=== PATIENT | female | born 1950 | race Caucasian/White ===

== ENCOUNTER 2019-05-05 10:15 | Outpatient (RCR) | payer MEDICARE, BC | END 2019-05-06 09:37 | disposition home or self-care (01) | LOC: MKS.ESL.PT 10:15 | DX: M25.511 Pain in right shoulder (principal); R53.1 Weakness ==

== ENCOUNTER 2020-04-27 10:27 | Day surgery (SDC) | payer MEDICARE, BC ==
[2020-04-27] VITALS (8 sets, daily range): BP systolic 108–123; BP diastolic 62–70; PULSE 54–69; TEMP 97–97.7
[~2020-04-27] VITALS: Ht 170.2 cm; Wt 63.2 kg
[2020-04-27] MEDS ORDERED: TIROSINT25 MC1 PO (11:44)
[2020-04-27] MEDS ORDERED: LOPRESSOR 550 MG/TAB PO (11:45)
[2020-04-27] MEDS ORDERED: EFFE25TA PO (11:46)
[2020-04-27] MEDS ORDERED: ASPIRIN 81M81 MG/TA2 PO (11:48)
[2020-04-27] MEDS ORDERED: LIPITOR 40MG TA40 MG PO (11:48)
[2020-04-27] MEDS ORDERED: CALCIUM 600MG+D1 TAB PO (11:49)
[2020-04-27] MEDS ORDERED: LOPRESSOR 225 MG/TAB PO (11:49)
[2020-04-27] MEDS ORDERED: PROBIOTIC FORMU1 CAP PO (11:50)
[2020-04-27] MEDS ORDERED: ONE-A-DAY ESSE1 EACH PO (11:50)
[2020-04-27] MEDS ORDERED: THE MEDICINE S200 M2 PO (11:51)
[2020-04-27] MEDS ORDERED: B-121000 MCG PO (11:51)
[2020-04-27] MEDS ORDERED: STOOL SOFTENER100 M2 PO (11:52)
[2020-04-27] MEDS ORDERED: PULMICORT0.5 MG/2 M IH (11:57)
[2020-04-27] MEDS ORDERED: [UNRECOGNIZED DRUG - OTHER] IH (11:58)
[2020-04-27] MEDS ORDERED: YUPELRI175 MCG/3 IH (11:59)
[2020-04-27] MEDS ORDERED: PRILOSEC 20MG20 MG PO (12:21)
[2020-04-27] MEDS ORDERED: MOTRIN 600600 MG/TAB PO (14:28)
[2020-04-27] MEDS ORDERED: PERCOCET 325 MG1 TA2 PO (14:29)
== END 2020-04-27 17:17 | disposition home or self-care (01) ==
LOC: SDCO 10:27
DX: K40.90 Unilateral inguinal hernia, without obstruction or gangrene, not specified as recurrent (principal); Z79.82 Long term (current) use of aspirin; I10 Essential (primary) hypertension; E78.00 Pure hypercholesterolemia, unspecified; Z86.010 Personal history of colon polyps; J44.9 Chronic obstructive pulmonary disease, unspecified; K21.9 Gastro-esophageal reflux disease without esophagitis; I25.10 Atherosclerotic heart disease of native coronary artery without angina pectoris; Z90.710 Acquired absence of both cervix and uterus; Z85.3 Personal history of malignant neoplasm of breast; Z82.3 Family history of stroke; F17.210 Nicotine dependence, cigarettes, uncomplicated; Z88.1 Allergy status to other antibiotic agents; Z88.8 Allergy status to other drugs, medicaments and biological substances; E78.5 Hyperlipidemia, unspecified; Z95.5 Presence of coronary angioplasty implant and graft; G47.33 Obstructive sleep apnea (adult) (pediatric); F32.9 Major depressive disorder, single episode, unspecified; Z20.828 Contact with and (suspected) exposure to other viral communicable diseases
CPT/HCPCS: C1781; J2250; J2405; J2704; J3010; J7120

== ENCOUNTER → 2020-07-17 | Outpatient (CLI) | payer MEDICARE, BC ==
[~2020-07-17] MED LIST: ASPIRIN 81M81 MG/TA2 PO; B-121000 MCG PO; CALCIUM 600MG+D1 TAB PO; EFFE25TA PO; LIPITOR 40MG TA40 MG PO; LOPRESSOR 225 MG/TAB PO; LOPRESSOR 550 MG/TAB PO; MOTRIN 600600 MG/TAB PO; ONE-A-DAY ESSE1 EACH PO; PERCOCET 325 MG1 TA2 PO; PRILOSEC 20MG20 MG PO; PROBIOTIC FORMU1 CAP PO; PULMICORT0.5 MG/2 M IH; STOOL SOFTENER100 M2 PO; THE MEDICINE S200 M2 PO; TIROSINT25 MC1 PO; YUPELRI175 MCG/3 IH; [UNRECOGNIZED DRUG - OTHER] IH
== END ==
LOC: MC.RAD 08:20
DX: Z12.31 Encounter for screening mammogram for malignant neoplasm of breast (principal)

== ENCOUNTER → 2021-09-24 | Outpatient (CLI) | payer MEDICARE, BC | LOC: COL.RAD 08-01 13:30 | DX: Z12.2 Encounter for screening for malignant neoplasm of respiratory organs (principal); F17.210 Nicotine dependence, cigarettes, uncomplicated ==

== ENCOUNTER → 2022-11-07 | Outpatient (CLI) | payer MEDICARE, BC | LOC: MC.RAD 10:43 | DX: Z12.31 Encounter for screening mammogram for malignant neoplasm of breast (principal); N64.89 Other specified disorders of breast ==

== ENCOUNTER → 2022-11-14 | Outpatient (CLI) | payer MEDICARE, BC | LOC: MC.RAD 12:47 | DX: N64.89 Other specified disorders of breast (principal) ==

== ENCOUNTER → 2022-11-25 | Outpatient (CLI) | payer MEDICARE, BC | LOC: COL.RAD 07:31 | DX: Z12.2 Encounter for screening for malignant neoplasm of respiratory organs (principal); J98.4 Other disorders of lung; R91.1 Solitary pulmonary nodule; F17.210 Nicotine dependence, cigarettes, uncomplicated ==

== ENCOUNTER 2023-09-01 15:26 | Inpatient (IN) | payer MEDICARE, BC ==
[~2023-09-01] VITALS: Ht 167.6 cm; Wt 53.7 kg
[2023-09-01] MEDS ORDERED: Albuterol/Ipratropium 3 MG-0.5 MG/3 ML Neb Soln IH ONE ×2 (15:30→16:15)
[2023-09-01] MEDS ORDERED: methylPREDNISolone Sod Succ 125 MG/2 ML VIAL IV ONE (15:30)
[2023-09-01 15:41] LABS: BASO # 0.1 K/mm3 (0.0-0.2); BASO % 0.9 % (0.0-2.0); EOS # 0.4 K/mm3 (0.0-0.7); EOS % 5.8 % (0.0-4.0); GRAN # 3.5 K/mm3 (1.4-6.5); GRAN % 52.4 % (42.2-75.2); HEMATOCRIT 47.8 % (37.0-47.0); HEMOGLOBIN 16.4 g/dl (12.5-16.0); LYMPH # 2.1 K/mm3 (1.2-3.4); LYMPH % 31.4 % (20.0-51.0); MEAN CELL VOLUME 98 fl (80.0-100.0); MEAN CORPUSCULAR HEMOGLOBIN 34 pg (27-31); MEAN CORPUSCULAR HGB CONC 34 g/dl (33.0-37.0); MEAN PLATELET VOLUME 10.1 fl (7.4-10.4); MONO # 0.6 K/mm3 (0.1-0.6); MONO % 9.3 % (1.7-9.3); PLATELET COUNT 202 K/mm3 (130-400); REDCELL DISTRIBUTION WIDTH-CV 14.8 % (11.5-14.5)
[2023-09-01] MEDS ORDERED: Albuterol 90 MCG/PUFF 8 GM MDI IH ONE (16:00)
[2023-09-01 16:01] LABS: ALANINE AMINOTRANSFERASE 23 U/L (0-55); ALBUMIN 3.7 gm/dL (3.4-4.8); ALKALINE PHOSPHATASE 69 U/L (40-150); ANION GAP 10 mmol/L (7-16); AST,SGOT 20 U/L (5-34); BILIRUBIN,TOTAL 0.4 mg/dL (0.2-1.2); BLOOD UREA NITROGEN 14 mg/dL (10-20); CALCIUM 9.3 mg/dL (8.4-10.2); CARBON DIOXIDE 23 mmol/L (23-31); CHLORIDE 110 mmol/L (98-107); CREATININE, serum 0.92 mg/dL (0.57-1.11); GLUCOSE 95 mg/dL (70-99); SODIUM 143 mmol/L (136-145); TOTAL PROTEIN 6.5 gm/dL (6.2-8.1)
[2023-09-01 16:06] LABS: TROPONIN-I < 0.010 ng/mL (0.00-0.033)
[2023-09-01] MEDS ORDERED: Azithromycin 250 MG TAB PO ONE (18:00)
[2023-09-01] MEDS ORDERED: cefTRIAXone 1 G in Water For Injection,Sterile 10 ML IV ONE (18:00)
[2023-09-01] MEDS ORDERED: Albuterol/Ipratropium 3 MG-0.5 MG/3 ML Neb Soln IH PRN (18:45)
[2023-09-01] MEDS ORDERED: dexAMETHasone 10 MG/ML VIAL IV SCH (18:45)
[2023-09-01] MEDS ORDERED: Formoterol Neb Soln 20 MCG/2 ML UD IH SCH (19:00)
[2023-09-01] MEDS ORDERED: Budesonide Neb Susp 0.5 MG/2 ML AMP IH SCH (19:00)
[2023-09-01] MEDS ORDERED: COZAAR 25MG25 MG/TAB PO (19:07)
[2023-09-01] MEDS ORDERED: COREG12.5 MG PO (19:07)
[2023-09-01] MEDS ORDERED: YUPELRI175 MCG/3 IH (19:35)
[2023-09-01] MEDS ORDERED: VENTOLIN0.09 MG IH (19:35)
[2023-09-01] MEDS ORDERED: EFFEXOR XR37.5 MG/CA PO (19:36)
[2023-09-01] MEDS ORDERED: BROVANA15 MCG/2 M IH (19:40)
[2023-09-01] MEDS ORDERED: LIPITOR 80MG80 MG PO (19:40)
--- NOTE | 2023-09-01 20:24 | NUR ---
FEMALE PATIENT ARRIVED TO ROOM #306 VIA WHEELCHAIR. REPORT RECIEVED FROM MAGGIE SAMPSON AT 195. PATIENT ASSISTED TO BED WITH STAND BY ASSIST. GAIT STEADY. PATIENT ON 4 LITERS OF OXYGEN VIA NC. TELEMETRY INTACT. INT TO RIGHT FOREARM INTACT. PATIENT VERBALIZED UNDERSTANDING OF BED CONTROLS AND CALL LIGHT. ALL NEEDS MET. INITAL INTERVIEW AND ASSESSMENT COMPLETED AT THIS TIME. BED IN LOW POSITION WITH WHEELS LOCKED WITH RAILS UP X3 AND CALL LIGHT WITHIN REACH.
[2023-09-01 20:30] VITALS: BP 138/78; PULSE 71; TEMP 97.5
--- NOTE | 2023-09-01 20:45 | NUR ---
PATIENT REFUSED SCDS AT THIS TIME.
[2023-09-01 21:00] VITALS: BP_SYST 138
[2023-09-01] MEDS ORDERED: Carvedilol 6.25 MG TAB PO SCH (21:00)
[2023-09-01] MEDS ORDERED: Losartan 25 MG TAB PO SCH (21:00)
--- NOTE | 2023-09-01 21:10 | NUR ---
PATIENT REQUESTED SOMETHING FOR SLEEP AND VERBALIZED UNDERSTANDING THAT HOSPITALIST WOULD BE CALLED. DAVID LYNCH CALLED. ORDER RECIEVED FOR MELATONIN 9MG PO EVERY EVENING FOR INSOMNIA. ORDER READ BACK AND VERIFIED.
[2023-09-01] MEDS ORDERED: Melatonin 3 MG TAB PO SCH (21:16)
--- NOTE | 2023-09-01 21:41 | NUR ---
PATIENT RESTING IN BED WITH TV ON AT THIS TIME WITH NO ACUTE DISTRESS NOTED. PATIENT ON 4 LITERS OF OXYGEN VIA NC. MEDICATION ADMINISTRATION COMPLETED AT THIS TIME. PATIENT TOLERATED WELL. SEE EMAR. PATIENT DENIES ANY NEEDS AT THIS TIME. BED IN LOW POSITION WITH WHEELS LOCKED WITH RAILS UP X3 AND CALL LIGHT WITHIN REACH.
--- NOTE | 2023-09-01 22:30 | NUR ---
DAVID LYNCH CALLED PRIMARY NURSE AT THIS TIME ABOUT PATIENT. CONVERSTION COMPLETED WITH PATIENT AND PROVIDER. PATIENT STATED THAT SHE WANTS TO BE A DNI.
[2023-09-01] MEDS ORDERED: Albuterol/Ipratropium 3 MG-0.5 MG/3 ML Neb Soln IH SCH (23:00)
[2023-09-01] MEDS ORDERED: Nicotine 14 MG DAILY PATCH TD SCH (23:00)
--- NOTE | 2023-09-01 23:40 | NUR ---
DAVID SWNA [facility] NOTIFED OF D-DINER RESULT AT THIS TIME. NO NEW ORDERS RECIEVED.
[2023-09-02] VITALS (12 sets, daily range): BP systolic 98–147; BP diastolic 21–90; PULSE 63–95; TEMP 97.1–98
--- NOTE | 2023-09-02 05:58 | NUR ---
PATIENT RESTED AT INTERVALS WITH CPAP ON. MEDICATION ADMINISTRATION COMPLETED. PATIENT TOLERATED WELL. INT INTACT. TELEMETRY INTACT. ALL NEEDS MET. BED IN LOW POSITION WITH WHEELS LOCKED WITH RAILS UP X3 AND CALL LIGHT WITHIN REACH.
[2023-09-02] MEDS ORDERED: Omeprazole 20 MG **** subs to Pantoprazole 40 MG PO SCH (07:00)
[2023-09-02 07:51] LABS: BASO % 0.1 % (0.0-2.0); GRAN % 86.4 % (42.2-75.2); HEMOGLOBIN 16.1 g/dl (12.5-16.0); LYMPH # 0.8 K/mm3 (1.2-3.4); LYMPH % 11.9 % (20.0-51.0); MEAN CELL VOLUME 99 fl (80.0-100.0); MEAN CORPUSCULAR HEMOGLOBIN 33 pg (27-31); MEAN CORPUSCULAR HGB CONC 33 g/dl (33.0-37.0); MONO # 0.1 K/mm3 (0.1-0.6); MONO % 1.2 % (1.7-9.3); PLATELET COUNT 206 K/mm3 (130-400); RED BLOOD COUNT 4.96 M/mm3 (4.10-5.30); REDCELL DISTRIBUTION WIDTH-CV 14.9 % (11.5-14.5)
[2023-09-02 08:09] LABS: CALCIUM 8.9 mg/dL (8.4-10.2); CREATININE, serum 0.76 mg/dL (0.57-1.11); POTASSIUM 4.1 mmol/L (3.5-4.5)
[2023-09-02] MEDS ORDERED: Docusate Sodium 100 MG CAP PO SCH (09:00)
[2023-09-02] MEDS ORDERED: Calcium Carb/Vit D3 500 mg-200 Units TAB PO SCH (09:00)
[2023-09-02] MEDS ORDERED: Tiotropium 2.5 MCG Respimat MDI IH SCH (09:00)
[2023-09-02] MEDS ORDERED: Multivitamin TAB PO SCH (09:00)
[2023-09-02] MEDS ORDERED: [UNRECOGNIZED DRUG - REMARK] IH SCH (09:00)
[2023-09-02] MEDS ORDERED: Cyanocobalamin (Vit B-12) 1,000 MCG TAB PO SCH (09:00)
[2023-09-02] MEDS ORDERED: Venlafaxine XR 37.5 MG CAP PO SCH (09:00)
--- NOTE | 2023-09-02 09:00 | NUR ---
PATIENT SITTING UP IN BED. RT AT BEDSIDE GIVING INHALED MEDICATIONS. PATIENT ON 3L OF 02. PATIENT HAS SOME DYSPNEA AT REST. WHEEZES NOTED IN RIGHT UPPER LOBE. PATIENT DENIES PAIN WHEN BREATHING. CALL LIGHT WITHIN REACH. PATIENT DENIES NEEDS OR CONCERNS AT THIS TIME. WILL CONT TO MONITOR.
--- NOTE | 2023-09-02 17:03 | NUR ---
lumber yard worker met with patient, patient's and patient's daughter to discuss discharge planning. Patient's best point of contact is [facility] () P# [phone] or daughter, Rosita, P# [phone]. PCP Dr. Mary Quispe, preferred pharmacy is [facility] for immediate needs otherwise she has her medications mailed in. No issues affording medications. DPOA is [facility] as primary then Rosita. Patient has a CPAP and nebulizer that she has received from [id number]. Patient reports being independent with [facility]LS and is able to be transported to and from appointments. Patient would like to return home at time of discharge. Discharge Plan: Home
[2023-09-02] MEDS ORDERED: cefTRIAXone 1 G in Water For Injection,Sterile 10 ML IV SCH (18:00)
[2023-09-02] MEDS ORDERED: Azithromycin 500 MG in NS 250 ML IV SCH (18:00)
--- NOTE | 2023-09-02 18:11 | NUR ---
PATIENT SITTING UP IN BED EATING DINNER. AZITHROMYCIN RUNNING INTRAVANEOUSLY PER OCT. O2 AT 4L VIA NC. PATIENT DENIES PAIN OR DISCOMFORT AT THIS TIME.
--- NOTE | 2023-09-02 18:53 | NUR ---
PATIENT SITTING UP IN BED READING BOOD WITH TV OFF AT THIS TIME WITH NO ACUTE DISTRESS NOTED. PATIENT ON 2.5 LITERS OF OXYGEN VIA NC. ZITHROMAX INFUSING INTO RIGHT FOREARM WITH NO COMPLICATIONS NOTED. ASSESSMENT COMPLETED. PATIENT TOLERATED WELL. PATIENT DENIES ANY NEEDS AT THIS TIME. BED IN LOW POSITION WITH WHEELS LOCKED WITH RAILS UP X2 AND CALL LIGHT WITHIN REACH.
--- NOTE | 2023-09-02 19:46 | NUR ---
PATIENT UP WALKING IN HALLWAY AT THIS TIME. NO ACUTE DISTRESS NOTED.
--- NOTE | 2023-09-02 21:06 | NUR ---
PATIENT RESTING IN BED READING HER BOOK WITH NO ACUTE DISTRESS NOTED. PATIENT ON 2 LITERS OF OXYGEN VIA NC. MEDICATION ADMINISTRATION COMPLETED AT THIS TIME. PATIENT TOLERATED WELL. BLOOD PRESSURE RECHECKED, 126/86, WNL NOW. PATIENT DENIES ANY NEEDS AT THIS TIME. BED IN LOW POSITION WITH WHEELS LOCKED WITH RAILS UP X3 AND CALL LIGHT WITHIN REACH.
[2023-09-03] VITALS (7 sets, daily range): BP systolic 129–156; BP diastolic 80–90; PULSE 63–97; TEMP 97.1–98.4
--- NOTE | 2023-09-03 08:58 | NUR ---
Patient is at the entrance of her room asking for medications to RT. I took her inside her room. Alert and oriented x 4, VSS. 1L O2 NC. Denies SOB. Assessment completed, meds given. No further needs at this time, breakfast arriving. Call light within reach.
[2023-09-03 09:03] LABS: BASO % 0.1 % (0.0-2.0); EOS % 0.1 % (0.0-4.0); GRAN # 11.2 K/mm3 (1.4-6.5); LYMPH # 1.5 K/mm3 (1.2-3.4); MEAN CELL VOLUME 98 fl (80.0-100.0); MEAN CORPUSCULAR HEMOGLOBIN 33 pg (27-31); MEAN CORPUSCULAR HGB CONC 34 g/dl (33.0-37.0); MEAN PLATELET VOLUME 10.3 fl (7.4-10.4); MONO # 0.6 K/mm3 (0.1-0.6); MONO % 4.5 % (1.7-9.3); PLATELET COUNT 190 K/mm3 (130-400); RED BLOOD COUNT 4.51 M/mm3 (4.10-5.30)
[2023-09-03 09:10] LABS: CALCIUM 8.7 mg/dL (8.4-10.2); CREATININE, serum 0.72 mg/dL (0.57-1.11); POTASSIUM 4.3 mmol/L (3.5-4.5)
--- NOTE | 2023-09-03 09:22 | NUR ---
Initial visit; Selene thanked Head Operator S[employer] for looking in on her. 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 Selene thanked Head Operator S[employer] for offering prayer and God's blessings. said she is blessed just getting to do what she does.
[2023-09-03] MEDS ORDERED: Loratadine 10 MG TAB PO PRN (12:00)
[2023-09-03] MEDS ORDERED: ZITHROMAX500 M2 PO (13:26)
[2023-09-03] MEDS ORDERED: OMNICEF 300MG300 MG PO (13:26)
[2023-09-03] MEDS ORDERED: DECADRON 4MG TAB4 MG PO (13:29)
--- NOTE | 2023-09-03 14:26 | NUR ---
Patient received discharge information, all questions answered. IV access and telemetry were discontinued.
== END 2023-09-03 14:50 | disposition home or self-care (01) | DRG 189 ==
LOC: COL.ER 15:26 → MEDICAL 18:52
PROVIDERS: Emergency Medicine; Hospitalist; Nurse Practitioner Family; ADMIT Internal Medicine
DX: J96.01 Acute respiratory failure with hypoxia (principal); J44.1 Chronic obstructive pulmonary disease with (acute) exacerbation; I25.10 Atherosclerotic heart disease of native coronary artery without angina pectoris; E03.9 Hypothyroidism, unspecified; I49.3 Ventricular premature depolarization; F17.210 Nicotine dependence, cigarettes, uncomplicated; Z66 Do not resuscitate; Z20.822 Contact with and (suspected) exposure to COVID-19; E78.5 Hyperlipidemia, unspecified; I10 Essential (primary) hypertension; G47.33 Obstructive sleep apnea (adult) (pediatric); Z95.5 Presence of coronary angioplasty implant and graft; Z88.1 Allergy status to other antibiotic agents; Z88.8 Allergy status to other drugs, medicaments and biological substances; Z91.018 Allergy to other foods; Z90.710 Acquired absence of both cervix and uterus; Z87.442 Personal history of urinary calculi; Z99.89 Dependence on other enabling machines and devices; Z79.82 Long term (current) use of aspirin; Z79.890 Hormone replacement therapy; Z79.899 Other long term (current) drug therapy; Z23 Encounter for immunization
CPT/HCPCS: A9270; J0456; J0696; J1100; J1650; J2930; J7050

== ENCOUNTER → 2024-03-16 | Outpatient (CLI) | payer MEDICARE, BC ==
[~2024-03-16] MED LIST changes: +BROVANA15 MCG/2 M IH; +COREG12.5 MG PO; +COZAAR 25MG25 MG/TAB PO; +DECADRON 4MG TAB4 MG PO; +EFFEXOR XR37.5 MG/CA PO; +LIPITOR 80MG80 MG PO; +OMNICEF 300MG300 MG PO; +VENTOLIN0.09 MG IH; +ZITHROMAX500 M2 PO
== END ==
LOC: MC.RAD 09:30
DX: Z12.31 Encounter for screening mammogram for malignant neoplasm of breast (principal)